=== PATIENT | male | born 1995 | race Caucasian/White ===

== ENCOUNTER 2017-11-18 17:03 | Emergency (ER) | payer BC, SELFPAY ==
[2017-11-18 17:19] VITALS: BP 145/110; PULSE 96; RESP 20; TEMP 37.1; O2SAT 98; BMI 26.4
--- NOTE | 2017-11-18 17:23 | HMH.EDUTC ---
[facility] [place] Disposition Clinical Impression: Bronchitis Disposition: Home, Self-Care Condition on Discharge: Good Instructions: DI for Acute Bronchitis Referrals: Santana Hernandez MD [Primary Care Provider] - Forms: Work/School Release Time of Disposition: 17:28 Medical Decision Making - Medical Records Medical records reviewed: Yes: I reviewed the patient's medical records. Vital Signs: 11/18/17 17:19 Temperature 98.8 F Temperature Source Temporal Artery Scan Pulse Rate [Brachial] 96 H Respiratory Rate 20 Blood Pressure [Right Arm] 145/110 Blood Pressure Mean [Right Arm] 121 Blood Pressure Source [Right Arm] Automatic Cuff Blood Pressure Position [Right Arm] Sitting 02 Sat by Pulse Oximetry 98 Oxygen Delivery Method Room Air - José Miguel Inquiry Pt receiving controlled substance: No [facility] [place] HPI - General Stated complaint: Cough Time Seen by Provider: 11/18/17 17:23 Mode of Arrival: Ambulatory Source of Information: Patient Limitations: No Limitations Description of Symptoms (Recalled from Triage Doc. by RN): WORK NOTE HEENT Symptoms (Recalled from RN notes): No Resp Symptoms (Recalled from RN notes): No Skin Symptoms (Recalled from RN notes): No MS Symptoms (Recalled from RN notes): No Functional Status (Recalled from RN notes): NA - History of Present Illness Provider Complaint: Sent home from work with cough. Seen 11/16/17 at [facility], diagnosed with bronchitis. Feels ok, just still has cough. Work sent him home. Onset (ago): day(s) (5) Location: chest Associated symptoms: denies other symptoms Treatments prior to arrival: none - Related Data Home Medications Medication Instructions Recorded Confirmed No Known Home Medications [No 11/16/17 11/16/17 Known Home Medications] Previous Rx's Medication Instructions Recorded albuterol sulfate HFA 90 2 puff INHALATION Q6H PRN 7 Days 11/16/17 mcg/actuation aerosol inhaler #6.7 g Allergies Allergy/AdvReac Type Severity Reaction Status Date / Time No Known Allergies Allergy Verified 11/16/17 15:52 - Worker's Comp Is this a Worker's Comp case?: No [facility] History I have reviewed the patient's past medical history: Yes Other Surgeries: Yes: No Previous Surgery - *Social History Smoking Status: Current every day smoker Tobacco Type: cigarettes Alcohol Intake: never - Psychiatric History Expresses thoughts of harming self/others: None Suicide Plan Description: No Plan *Family Hx:: Diabetes ROS Obtained: Yes All systems reviewed & no additional complaints - Respiratory Respiratory: Yes cough Physical Exam - General General appearance: alert, in no apparent distress - Head Head exam: atraumatic, normocephalic, normal inspection - Eye Eye exam: Present: normal appearance, PERRL, EOMI - ENT ENT exam: Present: normal exam, normal oropharynx, mucous membranes moist, TM's normal bilaterally, normal external ear exam - Neck Neck exam: Present: normal inspection, full ROM, trachea midline. Absent: meningismus, lymphadenopathy - Chest Chest inspection: Present: normal inspection, symmetric chest wall rise. Absent: tenderness - Respiratory Respiratory exam: Present: normal lung sounds bilaterally. Absent: respiratory distress - Cardiovascular Cardiovascular exam: Present: regular rate, normal rhythm. Absent: JVD - Abdominal Exam Abdominal exam: Present: soft, normal bowel sounds. Absent: distention, tenderness, guarding - Extremities Exam Extremities exam: Present: normal inspection, full ROM, normal capillary refill. Absent: calf tenderness - Back Exam Back exam: Present: normal inspection. Absent: tenderness - Neurological Exam Neurological exam: Present: alert, oriented X3 - Psychiatric Psychiatric exam: Present: normal affect, normal mood - Skin Skin exam: Present: warm, dry, intact, normal color - Lymphatic Lymphatic Findings: no adenopathy
--- NOTE | 2017-11-18 17:26 | ED_ITS ---
[facility] – [place] Disposition Clinical Impression: Bronchitis Disposition: Home, Self-Care Condition on Discharge: Good Instructions: DI for Acute Bronchitis Referrals: Santana Hernandez MD [Primary Care Provider] - Forms: Work/School Release Time of Disposition: 17:28 Medical Decision Making - Medical Records Medical records reviewed: Yes: I reviewed the patient's medical records. Vital Signs: 11/18/17 17:19 Temperature 98.8 F Temperature Source Temporal Artery Scan Pulse Rate [Brachial] 96 H Respiratory Rate 20 Blood Pressure [Right Arm] 145/110 Blood Pressure Mean [Right Arm] 121 Blood Pressure Source [Right Arm] Automatic Cuff Blood Pressure Position [Right Arm] Sitting 02 Sat by Pulse Oximetry 98 Oxygen Delivery Method Room Air - José Miguel Inquiry Pt receiving controlled substance: No [facility] [place] HPI - General Stated complaint: Cough Time Seen by Provider: 11/18/17 17:23 Mode of Arrival: Ambulatory Source of Information: Patient Limitations: No Limitations Description of Symptoms (Recalled from Triage Doc. by RN): WORK NOTE HEENT Symptoms (Recalled from RN notes): No Resp Symptoms (Recalled from RN notes): No Skin Symptoms (Recalled from RN notes): No MS Symptoms (Recalled from RN notes): No Functional Status (Recalled from RN notes): NA - History of Present Illness Provider Complaint: Sent home from work with cough. Seen 11/16/17 at [facility], diagnosed with bronchitis. Feels ok, just still has cough. Work sent him home. Onset (ago): day(s) (5) Location: chest Associated symptoms: denies other symptoms Treatments prior to arrival: none - Related Data Home Medications Medication Instructions Recorded Confirmed No Known Home Medications [No 11/16/17 11/16/17 Known Home Medications] Previous Rx's Medication Instructions Recorded albuterol sulfate HFA 90 2 puff INHALATION Q6H PRN 7 Days 11/16/17 mcg/actuation aerosol inhaler #6.7 g Allergies Allergy/AdvReac Type Severity Reaction Status Date / Time No Known Allergies Allergy Verified 11/16/17 15:52 - Worker's Comp Is this a Worker's Comp case?: No [facility] History I have reviewed the patient's past medical history: Yes Other Surgeries: Yes: No Previous Surgery - *Social History Smoking Status: Current every day smoker Tobacco Type: cigarettes Alcohol Intake: never - Psychiatric History Expresses thoughts of harming self/others: None Suicide Plan Description: No Plan *Family Hx:: Diabetes ROS Obtained: Yes All systems reviewed & no additional complaints - Respiratory Respiratory: Yes cough Physical Exam - General General appearance: alert, in no apparent distress - Head Head exam: atraumatic, normocephalic, normal inspection - Eye Eye exam: Present: normal appearance, PERRL, EOMI - ENT ENT exam: Present: normal exam, normal oropharynx, mucous membranes moist, TM's normal bilaterally, normal external ear exam - Neck Neck exam: Present: normal inspection, full ROM, trachea midline. Absent: meningismus, lymphadenopathy - Chest Chest inspection: Present: normal inspection, symmetric chest wall rise. Absent : tenderness - Respiratory Respiratory exam: Present: normal lung sounds bilaterally. Absent: respiratory distress
== END 2017-11-18 17:33 | disposition home or self-care (01) ==
PROVIDERS: Emergency Provider Physician Assistant; PCP Internal Medicine Adolescent Medicine
DX: J20.9 Acute bronchitis, unspecified (principal); F17.210 Nicotine dependence, cigarettes, uncomplicated
CPT/HCPCS: 99202

== ENCOUNTER 2020-09-19 11:20 | Emergency (ER) | payer SELFPAY ==
[2020-09-19 12:45] VITALS: BP 141/86; PULSE 89; RESP 19; TEMP 37.1; O2SAT 98; BMI 25.1
--- NOTE | 2020-09-19 12:47 | HMH.EDUTC ---
[facility] [place] Disposition Clinical Impression: Exposure to COVID-19 virus, Bronchitis Disposition: Home, Self-Care Condition on Discharge: Good Instructions: Preventing the Spread of Coronavirus Discharge Instructions Additional Instructions: Drink plenty of fluids. Take tylenol for pain or fever. Return if you begin to have difficulty breathing. Follow up with your regular doctor. GO TO THE ER FOR ANY WORSENING SYMPTOMS Prescriptions: Ondansetron [Zofran 4mg ODT] 4 mg PO Q8HP PRN #12 tab.rapdis PRN Reason: Nausea Transmission Status: Received by [email or web address] Azithromycin [Z-Eliot 250mg Tab*] 250 mg PO UD DOSE PK #6 tab Transmission Status: Received by [email or web address] Referrals: PCP,No [Primary Care Provider] - Time of Disposition: 13:02 Medical Decision Making - Medical Records Medical records reviewed: No: I reviewed the patient's medical records. - José Miguel Inquiry Pt receiving controlled substance: No Vital Signs: 09/19/20 12:45 09/19/20 13:14 Temperature 98.7 F 98.7 F Temperature Source Oral Pulse Rate 89 Pulse Rate [Right Brachial] 89 Respiratory Rate 19 19 Blood Pressure 141/86 H Blood Pressure [Right Arm] 141/86 H Blood Pressure Mean [Right Arm] 104 Blood Pressure Source [Right Arm] Automatic Cuff Blood Pressure Position [Right Arm] Sitting 02 Sat by Pulse Oximetry 98 Oxygen Delivery Method Room Air Orders (Tests/Meds): ORDERS Category Date Time Status Covid-19 Nasal PCR ([facility]) Routine Lab 09/19/20 12:38 Ordered Covid-19 Nasal PCR ([facility]) Routine Lab 09/19/20 12:46 Received [facility] [place] HPI - General Stated complaint: Cough, sore throat Time Seen by Provider: 09/19/20 12:47 - History of Present Illness Provider Complaint: He states that for the past 3 days he has had a cough, body aches, and feeling bad. He denies any known exposure to covid. 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 - Related Data Previous Rx's Medication Instructions Recorded Azithromycin [Z-Eliot 250mg Tab*] 250 mg PO UD DOSE PK #6 tab 09/19/20 Ondansetron [Zofran 4mg ODT] 4 mg PO Q8HP PRN #12 tab.rapdis 09/19/20 Allergies Allergy/AdvReac Type Severity Reaction Status Date / Time No Known Allergies Allergy Verified 11/16/17 15:52 [facility] History - Hepatitis A Screen Attestation statement:: This patient has been screened for Hepatitis A risk factors. I have reviewed the patient's past medical history: Yes Other Surgeries: Yes: No Previous Surgery - Social History Smoking Status: Current every day smoker Tobacco Type: cigarettes Alcohol Intake: never Family Hx:: Diabetes ROS Obtained: Yes All systems reviewed & no additional complaints - Constitutional Constitutional: Reports chills, Reports fever(s), Reports poor appetite, Reports malaise - Eyes Eyes: Denies eye discharge - ENT Ears, Nose, Mouth, and Throat: Reports as per HPI - Cardiovascular Cardiovascular: Denies chest pain - Respiratory Respiratory: Yes chest congestion, Yes cough, No dyspnea, No stridor, No wheezing - Gastrointestinal Gastrointestingal: Reports: nausea. Denies: abdominal pain, diarrhea, vomiting Physical Exam - General General appearance: alert, in no apparent distress - Head Head exam: atraumatic, normocephalic, normal inspection - Eye Eye exam: Present: normal appearance, PERRL, EOMI - ENT ENT exam: Present: normal exam, normal oropharynx, mucous membranes moist, TM's normal bilaterally, normal external ear exam - Neck Neck exam: Present: normal inspection, full ROM, trachea midline. Absent: meningismus, lymphadenopathy - Chest Chest inspection: Present: normal inspection, symmetric chest wall rise. Absent: tenderness - Respiratory Respiratory exam: Present: normal lung sounds bilaterally. Absent: respiratory distress - Cardiovascular Cardiovascular exam: Present: regular rate, normal rhythm. Absent: JVD - Abdomi
[2020-09-19 13:14] VITALS: BP 141/86; PULSE 89; RESP 19; TEMP 37.1; O2SAT 98
== END 2020-09-19 13:16 | disposition home or self-care (01) ==
PROVIDERS: Emergency Provider Nurse Practitioner Family
DX: Z20.828 Contact with and (suspected) exposure to other viral communicable diseases (principal); J20.9 Acute bronchitis, unspecified; F17.210 Nicotine dependence, cigarettes, uncomplicated
CPT/HCPCS: 99201; U0003

== ENCOUNTER 2021-06-24 15:57 | Emergency (ER) | payer SELFPAY ==
[2021-06-24 17:44] VITALS: BP 114/62; PULSE 66; RESP 18; TEMP 36.7; O2SAT 99; BMI 25.2
--- NOTE | 2021-06-24 17:50 | HMH.EDUTC ---
[facility] [place]ression: Exposure to COVID-19 virus Disposition: Home, Self-Care Condition on Discharge: Good Instructions: DI for COVID-19 (Suspected or Confirmed ), Coronavirus Disease 2019, Preventing the Spread of Coronavirus Discharge Instructions Additional Instructions: *Monitor Temp, Over the counter Motrin or Tylenol as directed/as needed Tylenol every 4 hours and Motrin every 6 hours (as long as your family doctor has told you that you can take it) for fever or pain. and straight to ER if unable to lower temp less than 101.0 after medication given *Warm salt water gargles may help to soothe the throat *Throat Lozenges *Warm fluids like tea with honey may help to soothe the throat *Sleep elevated *Humidifier/Vaporizer Follow up IMMEDIATELY for new or worsening symptoms or no Noticeable improvement over the next 48-72 hours. 911 for difficulty breathing or swallowing You were tested for today for COVID19 your test result should be back in the next 24-48 hours, you may call to the [facility] to see if your test results are back in the next 48 hours [phone] [facility] hours are 9am-9pm You was given a handout with instructions for Self Quarantine and Self isolation for while you wait on test results and what to do if they are positive If you are positive the Health Dept will be contacting you also Make sure to take your Vitamins Vit. C Vit D and Zinc if you can take them Prescriptions: Fluticasone Propionate [Flonase 50mcg nasal spray 16gm] 1 spr NS DAILY #1 ml Transmission Status: Pending to [facility] Referrals: Provider,Referral, [Primary Care Provider] - As needed Forms: Work/School Release Time of Disposition: 17:56 Medical Decision Making - José Miguel Inquiry Pt receiving controlled substance: No José Miguel was queried for this patient: No Vital Signs: 06/24/21 17:44 Temperature 98.0 F Temperature Source Oral Pulse Rate [Left Radial] 66 Respiratory Rate 18 Blood Pressure [Left Arm] 114/62 Blood Pressure Mean [Left Arm] 79 Blood Pressure Source [Left Arm] Automatic Cuff Blood Pressure Position [Left Arm] Sitting 02 Sat by Pulse Oximetry 99 Oxygen Delivery Method Room Air Orders (Tests/Meds): ORDERS Category Date Time Status Covid-19 Nasal PCR ([facility]) Routine Lab 06/24/21 17:39 Or[place] [facility] [place] - General Stated complaint: covid test Time Seen by Provider: 06/24/21 17:50 Mode of Arrival: Ambulatory Source of Information: Patient Limitations: No Limitations Description of Symptoms (Recalled from Triage Doc. by RN): requesting covid test, states girl friend tested positive yesterday. Pt reports body aches HEENT Symptoms (Recalled from RN notes): No Resp Symptoms (Recalled from RN notes): No Skin Symptoms (Recalled from RN notes): No MS Symptoms (Recalled from RN notes): No Functional Status (Recalled from RN notes): n/a - History of Present Illness Provider Complaint: Patient states that his girlfriend tested positive for COVID states that he has been having some body aches and runny nose so he wanted to get tested to make sure that he doesnt have it where he has been around her - Related Data Previous Rx's Medication Instructions Recorded Azithromycin [Z-Eliot 250mg Tab*] 250 mg PO UD DOSE PK #6 tab 09/19/20 Ondansetron [Zofran 4mg ODT] 4 mg PO Q8HP PRN #12 tab.rapdis 09/19/20 Fluticasone Propionate [Flonase 1 spr NS DAILY #1 ml 06/24/21 50mcg nasal spray 16gm] Allergies Allergy/AdvReac Type Severity Reaction Status Date / Time No Known Allergies Allergy Verified 12/26/20 13:04 - Worker's Comp Is this a Worker's Comp case?: No [facility] History - Hepatitis A Screen Drug use history?: No High risk sexual behaviors?: No History of sexually transmitted infection?: No Currently employed?: No Childcare worker?: No Do you have indoor plumbing?: Yes Do you have electricity?: Yes Attestation statement:: This patient has been screened for Hepatitis A ri
[2021-06-24 17:59] VITALS: BP 0/0; PULSE 0; RESP 0; TEMP -17.7; TEMP 0
--- NOTE | 2021-06-25 15:46 | PC.NURSE ---
Patient aware of negative COVID result
== END 2021-06-24 18:09 | disposition home or self-care (01) ==
PROVIDERS: Emergency Provider Nurse Practitioner
DX: Z20.822 Contact with and (suspected) exposure to COVID-19 (principal); F17.210 Nicotine dependence, cigarettes, uncomplicated
CPT/HCPCS: 99202; G0463; U0003

== ENCOUNTER → 2022-06-26 09:11 | Outpatient (CLI) | payer OTHER, SELFPAY | PROVIDERS: PCP Internal Medicine; Visit Provider Physician Assistant | DX: U07.1 COVID-19 (principal); J02.9 Acute pharyngitis, unspecified | CPT/HCPCS: 87070; C9803; U0003; U0005 ==

== ENCOUNTER → 2023-09-09 16:42 | Outpatient (CLI) | payer OTHER, SELFPAY ==
[2023-09-09 16:26] LABS: Basophils # 0.1 K/mm3 (0-0.2); Basophils % 0.7 % (0.1-2.0); Eosinophils # 0.5 K/mm3 (0.0-0.4); Eosinophils % 6.6 % (0.1-12.0); Hematocrit 46.4 % (42.0-52.0); Hemoglobin 16.3 g/dL (14.1-18.0); Lymphocytes # 2.6 K/mm3 (0.7-4.5); Lymphocytes % 35.4 % (10-50); Mean Corpuscular Volume 88.5 fl (80-94); Mean Platelet Volume 8.6 fl (7.4-10.4); Monocytes # 0.5 K/mm3 (0.1-1.0); Monocytes % 6.9 % (1.7-9.3); Neutrophils # 3.7 K/mm3 (1.8-7.8); Neutrophils % 50.5 % (37.0-80.0); Platelet Count 244 K/mm3 (142-424); Red Blood Count 5.25 M/mm3 (4.60-6.20); Red Cell Distribution Width 12.5 % (11.5-17.5); White Blood Count 7.3 K/mm3 (4.8-10.8)
[2023-09-09 17:18] LABS: Alanine Aminotransferase 57 U/L (12-78); Albumin Level 4.9 g/dl (3.5-5.0); Albumin/Globulin Ratio 2.1 (1.1-1.8); Alkaline Phosphatase 63 U/L (38-126); Anion Gap 17.5 mEq/L (5-15); Aspartate Amino Transferase 63 U/L (17-59); Bilirubin,Total 0.6 mg/dl (0.2-1.3); Blood Urea Nitrogen 23 mg/dl (9-20); Calcium 9.5 mg/dl (8.4-10.2); Carbon Dioxide 27 mmol/L (22.0-30.0); Chloride 99 mmol/L (98-107); Chol/HDL Ratio 5.9 (1-3.5); Cholesterol 165 mg/dl (140-200); Estimated Glomerular Filt Rate 79 ml/min (>60); GFR (African American) 96 ML/MIN (>60); Globulin 2.3 g/dL (1.3-3.2); Glucose 88 mg/dl (74-100); HDL Cholesterol 28 mg/dl (40-60); Potassium 4.5 mmoL/L (3.5-5.1); Sodium 139 mmol/L (136-145); Total Protein,Serum 7.2 g/dl (6.3-8.2); Triglycerides 317 mg/dl (30-150); VLDL Cholesterol 63 mg/dL (0-40)
[2023-09-09 17:48] LABS: Thyroid Stimulating Hormone 1.46 uIU/mL (0.465-4.68)
== END ==
LOC: LAB.DROPOF 16:42
PROVIDERS: PCP Nurse Practitioner Family; Visit Provider Nurse Practitioner Family
DX: I10 Essential (primary) hypertension (principal)
CPT/HCPCS: 80053; 80061; 84443; 85025

== ENCOUNTER → 2023-09-10 14:15 | Outpatient (CLI) | payer OTHER, SELFPAY ==
--- NOTE | 2023-09-10 14:23 | XR_ITS ---
PROCEDURE INFORMATION: Exam: XR Chest Exam date and time: 09/10/2023 2:24 PM Age: 28 years old Clinical indication: Other: HTN; Additional info: Hypertension TECHNIQUE: Imaging protocol: Radiologic exam of the chest. Views: 2 views. Total images: 2 COMPARISON: No relevant prior studies available. FINDINGS: Lungs: Unremarkable. No consolidation. Pleural spaces: Unremarkable. No pleural effusion. No pneumothorax. Heart/Mediastinum: Unremarkable. No cardiomegaly. Bones/joints: Unremarkable. IMPRESSION: No acute findings.
== END ==
PROVIDERS: PCP Nurse Practitioner Family; Visit Provider Nurse Practitioner Family
DX: I10 Essential (primary) hypertension (principal)
CPT/HCPCS: 71046

== ENCOUNTER → 2023-09-21 08:41 | Outpatient (CLI) | payer OTHER, SELFPAY ==
--- NOTE | 2023-09-21 08:47 | CA_ITS ---
APPROVED REPORT EXAM: Comprehensive 2D, Doppler, and color-flow Echocardiogram Physical Therapy Assistant Instructor: Veronique Fernandes CRT Ht: 5 ft 10 in Wt: 197lbs BSA: 2.07 BP: 128/88 mmHg Indications: Hypertension/HDD,dizziness,palpitations 2D Dimensions LVOT 2.00 cm (M/F) 1.5-2.5 LA Volume 29.90 mL LA Volume Index 14.10 mL/m2 (M/F) 16-34 M-Mode Dimensions RVDd 2.51 cm (0.9-2.6) LA Diam 2.86 cm (1.9-4.0) LVDd 5.63 cm (3.5-5.7) Ao Diam 3.68 cm (2.0-3.7) LVDs 4.02 cm (3.5-5.7) IVSd 1.18 cm (0.6-1.1) PWd 0.86 cm (0.6-1.1) EF (Teich) 54.50% FS 28.60% EDV (Teich) 155.60 mL TAPSE 1.70 (<1.7) ESV (Teich) 70.80 mL LV Diastology E Decel Time 263.00 (160-240 msec) E/A Ratio 0.89 MED E' 8.20 (< 7 cm/sec) MED A' 7.30 cm/s E'/MED E' Ratio 7.05 (>14) LAT E' 11.80 (<10 cm/sec) LAT A' 7.60 cm/s E/LAT E' Ratio 4.90 (>14) Aortic Valve AO Peak GR. 4.40 mmHg Mitral Valve MV A Velocity 65.00 (40-130 cm/s) E/A Ratio 0.89 MV Decel. Time 263.00 (160-240 ms) Pulmonary Valve PV Peak Velocity 91.00 (50-150 cm/s) Tricuspid Valve TR P. Velocity 149.00 cm/s RAP Estimate 10.00 mmHg RVSP 18.90 mmHg Left Ventricle The left ventricle is normal size. The left ventricular systolic function is normal. The left ventricular ejection fraction is within the normal range. There is normal left ventricular wall thickness. There is normal LV segmental wall motion. The left ventricular diastolic function is normal. LVEF is 55%. Right Ventricle The right ventricle is normal size. The right ventricular systolic function is normal. Atria The left atrium size is normal. The right atrium size is normal. The interatrial septum is not well-visualized. Aortic Valve The aortic valve opens well. There is no aortic valvular stenosis. No aortic regurgitation is present. Mitral Valve The mitral valve is normal in structure. No evidence of mitral valve stenosis. Trace mitral regurgitation. Tricuspid Valve The tricuspid valve leaflets are thin and pliable. Trace tricuspid regurgitation. There is insufficient TR jet to estimate RVSP. Pulmonic Valve The pulmonary valve is normal in structure. Trace pulmonic regurgitation. Great Vessels The aortic root is normal in size. The ascending aorta is normal in size. IVC is normal in size and collapses >50% with inspiration. Pericardium There is no pericardial effusion. Other Information Study Quality: Fair Conclusion Normal biventricular systolic function. No significant valvular stenosis or regurgitation. Electronically signed by : Ansley Kinsey MD 09/25/2023 21:16:18
--- NOTE | 2023-09-21 10:40 | CA_ITS ---
APPROVED REPORT Exam: Exercise Treadmill Technologist: Zuleyka Bales, Ht: 5 ft 10 in Wt: 197 lbs BSA: 2.07 m2 HR: 77 bpm BP: 126/96 mmHg Rhythm: NSR Medical History Medications: BisOPROLOL Fumarate,,,,, Stress Test Details Test: Terry HR Resting HR: 79 bpm Max Heart Rate (APMHR): 191 bpm Max HR Achieved: 175 bpm Target HR (85% APMHR): 162 bpm % of APMHR: 92 Recovery HR: 102 bpm HR response to stress: Normal HR response to stress BP Resting BP: 130.0/94.0 mmHg Max BP: 204.0/106.0 mmHg Recovery BP: 150.0/94.0 mmHg BP response to stress: Abnormal hypertensive response to stress. ECG Resting ECG: NSR, rightward axis Stress EC.[address] depression Arrhythmia: PACs Recovery ECG: Return to baseline within 3 minutes of recovery Recovery Arrhythmia: PACs Clinical Exercise duration: 14:37 min Highest Stage Achieved: V Exercise capacity: 14.8 METs Overall Exercise Capacity for Age: Good Stress ECG Conclusion The patient was able to exercise for a total of 40 minutes, 37 seconds. He achieved a total of 14.8 METS. He has good exercise capacity compared to age and sex matched peers. He has normal HR, but exaggerated BP, response to exercise. Max HR: 173 % of PM: 91% Max BP: 204/106 Test stopped due to: SOA, leg fatigue. Symptoms: No chest pain. Arrhythmias/Ectopy: PVCs ST-T Changes: Normal ST response to exercise. Nonspecific T wave cchanges in late recovery. Conclusion: Good exercise capacity. Exaggerated BP response to exercise at peak stress. Normal GXT. GXT only ( no imaging) Test Summary REST . . . . . . . Sitting REST . . . . . . . Sitting REST . . . . . . . Standing REST 02:44 0.0 0.0 79 . 130/ 94 . . Stage 1 01:00 10.0 1.7 96 . . . . Stage 1 02:00 10.0 1.7 94 . . . . Stage 1 03:00 10.0 1.7 95 . 152/ 86 . . Stage 2 01:00 12.0 2.5 107 . . . . Stage 2 02:00 12.0 2.5 109 . . . . Stage 2 03:00 12.0 2.5 104 . 166/ 80 . . Stage 3 01:00 14.0 3.4 120 . . . . Stage 3 02:00 14.0 3.4 122 . . . . Stage 3 03:00 14.0 3.4 126 . 175/ 72 . . Stage 4 01:00 16.0 4.2 140 . . . . Stage 4 02:00 16.0 4.2 147 . . . . Stage 4 03:00 16.0 4.2 146 . 196/ 80 . . Stage 5 01:00 18.0 5.0 168 . . . . Stage 5 02:00 18.0 5.0 172 . . . . Stage 5 02:37 18.0 5.0 173 . . . Stop exercise at 14:37 RECOVERY 01:00 0.0 0.0 154 . . . . RECOVERY 02:00 0.0 0.0 122 . . . . RECOVERY 03:00 0.0 0.0 108 . 204/106 . . RECOVERY 04:00 0.0 0.0 112 . 178/106 . . RECOVERY 05:00 0.0 0.0 103 . 178/106 . . RECOVERY 06:00 0.0 0.0 100 . 181/ 95 . . RECOVERY 07:00 0.0 0.0 102 . 150/ 94 . . RECOVERY 07:19 0.0 0.0 103 . 150/ 94 . . Electronically signed by : Ansley Kinsey MD 10/18/2023 12:35:06
== END ==
LOC: RT 08:41
PROVIDERS: PCP Nurse Practitioner Family; Visit Provider Nurse Practitioner Family
DX: I10 Essential (primary) hypertension (principal); Z87.891 Personal history of nicotine dependence
CPT/HCPCS: 93017; 93018; 93306

== ENCOUNTER 2023-11-10 13:32 | Outpatient (CLI) | payer OTHER, SELFPAY ==
--- NOTE | 2023-11-10 13:39 | XR_ITS ---
FINAL REPORT CLINICAL HISTORY: right medial/lateral pain in elbow. Pain runs down into forearm. COMPARISON: None FINDINGS: AP, oblique, and lateral views of the right elbow were obtained. There is no prior exam for comparison. There is no acute fracture or dislocation. Joint space is preserved. There is no joint effusion or other soft tissue abnormality. IMPRESSION: No acute osseous abnormality of the right elbow. Reviewed, Interpreted and Dictated by Nicholas Ribera III, MD Transcribed by Beverley Vincent Authenticated and . [facility]
== END 2023-11-10 23:59 ==
LOC: RAD 13:33
PROVIDERS: PCP Nurse Practitioner Family; Visit Provider Orthopaedic Surgery
DX: M25.521 Pain in right elbow (principal)
CPT/HCPCS: 73080

== ENCOUNTER 2024-04-10 12:49 | Outpatient (CLI) | payer OTHER, SELFPAY ==
--- NOTE | 2024-04-10 12:50 | CA_ITS ---
APPROVED REPORT EXAM: Comprehensive 2D, Doppler, and color-flow Echocardiogram Harness Placer: Veronique Fernandes CRT Ht: 5 ft 10 in Wt: 200lbs BSA: 2.09 BP: 110/66 mmHg Indications: Hypertension/HDD, Exsmoker 2D Dimensions Left Atrium 3.01 cm LVEF (Beckett's) 51.90 % LVOT 2.00 cm (M/F) 1.5-2.5 LV Volume 125.50 mL LA Volume 43.20 mL LA Volume Index 20.70 mL/m2 (M/F) 16-34 EF AP4 52.00 % EF AP2 51.2 % EF BP 51.9 % GL Strain -18.8 % M-Mode Dimensions RVDd 2.18 cm (0.9-2.6) LVDd 5.55 cm (3.5-5.7) Ao Diam 3.77 cm (2.0-3.7) LVDs 3.59 cm (3.5-5.7) IVSd 1.03 cm (0.6-1.1) PWd 0.77 cm (0.6-1.1) EF (Teich) 64.10% FS 35.30% EDV (Teich) 150.50 mL TAPSE 2.06 (<1.7) ESV (Teich) 54.10 mL LV Diastology E Decel Time 167 (160-240 msec) E/A Ratio 1.33 MED E' 7.8 (>= 7 cm/sec) MED A' 8.90 cm/s E'/MED E' Ratio 10.51 (<= 14) LAT E' 15.3 (>= 10 cm/sec) LAT A' 9.50 cm/s E/LAT E' Ratio 5.36 (<= 14) Aortic Valve AoV Peak Nii. 123.0 (50-130 cm/s) AO Peak GR. 6.00 mmHg Mitral Valve MV E Max Nii. 82.0 (40-130 cm/s) MV A Velocity 62.0 (40-130 cm/s) E/A Ratio 1.33 MV Decel. Time 167 (160-240 ms) Tricuspid Valve TR P. Velocity 241.00 cm/s RAP Estimate 10.00 mmHg RVSP 33.20 mmHg Left Ventricle The left ventricle is normal size. The left ventricular systolic function is normal. The left ventricular ejection fraction is within the normal range. There is normal left ventricular wall thickness. There is normal LV segmental wall motion. The left ventricular diastolic function is normal. LVEF is 55%. Right Ventricle The right ventricle is normal size. The right ventricular systolic function is normal. Atria The left atrium size is normal. The right atrium size is normal. Aortic Valve The aortic valve is normal in structure. There is no aortic valvular stenosis. Color Doppler across the interatrial septum is not performed in this study. Mitral Valve The mitral valve is normal in structure. No evidence of mitral valve stenosis. There is no mitral valve regurgitation noted. Tricuspid Valve The tricuspid valve leaflets are thin and pliable. There is no tricuspid valve stenosis. Trace tricuspid regurgitation. There is insufficient TR jet to estimate RVSP. Pulmonic Valve The pulmonary valve is normal in structure. Trace pulmonic regurgitation. Great Vessels The aortic root is normal in size. The ascending aorta is normal in size. IVC is normal in size and collapses >50% with inspiration. Pericardium There is no pericardial effusion. Other Information Study Quality: Adequate Conclusion Normal biventricular systolic function. No significant valvular stenosis or regurgitation. Electronically signed by : Ansley Kinsey MD 04/15/2024 17:06:05
== END 2024-04-10 23:59 | disposition home or self-care (01) ==
PROVIDERS: PCP Nurse Practitioner Family; Visit Provider Nurse Practitioner Family
DX: I10 Essential (primary) hypertension (principal); F17.210 Nicotine dependence, cigarettes, uncomplicated
CPT/HCPCS: 93306

== ENCOUNTER 2024-07-19 08:08 | Outpatient (CLI) | payer OTHER, SELFPAY ==
--- NOTE | 2024-07-19 08:09 | MR_ITS ---
FINAL REPORT CLINICAL HISTORY: Right Elbow almeida and swelling in the joint nki COMPARISON: None FINDINGS: Multiplanar MR imaging of the right elbow was performed without contrast. The bony structures are intact without evidence of fracture, bone bruise or marrow edema. There is no evidence of osteochondral lesion. The ligaments appear intact. The common extensor tendon is intact. The common flexor tendon is intact. The biceps tendon is intact. The distal triceps tendon is intact. The brachialis tendon is intact. The musculature has an unremarkable appearance. No soft tissue mass or cyst is identified. No focal abnormality is identified of the ulnar nerve. IMPRESSION: No focal injury identified. Reviewed, Interpreted and Dictated by Srikanth De La Cruz MD Transcribed by Beverley Vincent Authenticated and [facility][1]
== END 2024-07-19 23:59 | disposition home or self-care (01) ==
LOC: RAD 08:09
PROVIDERS: PCP Nurse Practitioner Family; Visit Provider Orthopaedic Surgery
DX: M25.521 Pain in right elbow (principal); S56.911D Strain of unspecified muscles, fascia and tendons at forearm level, right arm, subsequent encounter
CPT/HCPCS: 73221

== ENCOUNTER 2025-04-01 08:35 | Outpatient (CLI) | payer OTHER, SELFPAY ==
--- NOTE | 2025-04-01 08:39 | CA_ITS ---
APPROVED REPORT EXAM: Comprehensive 2D, Doppler, and color-flow Echocardiogram Cap Maker: Alicja Hallman RVT Ht: 5 ft 10 in Wt: 200lbs BSA: 2.09 BP: 156/100 mmHg Indications: HTN,VALVULAR REGURGITATION 2D Dimensions LA Volume 42.20 mL LA Volume Index 20.19 mL/m2 (M/F) 16-34 M-Mode Dimensions RVDd 2.32 cm (0.9-2.6) LA Diam 3.17 cm (1.9-4.0) LVDd 5.13 cm (3.5-5.7) LVDs 3.31 cm (3.5-5.7) IVSd 1.06 cm (0.6-1.1) PWd 0.72 cm (0.6-1.1) EF (Teich) 64.50% FS 35.50% EDV (Teich) 125.50 mL TAPSE 2.04 (<1.7) ESV (Teich) 44.50 mL LV Diastology E Decel Time 150 (160-240 msec) E/A Ratio 1.0 Aortic Valve DELFINO Index 1.43 cm2/m2 AoV Peak Nii. 117.0 (50-130 cm/s) AO Peak GR. 5.50 mmHg AO Mean GR. 3.30 (<5 mmHg) AO VTI 23.5 (18-25 cm) DELFINO (VTI) 3.05 (2.5-4.5 cm2) Mitral Valve MV E Max Nii. 76.0 (40-130 cm/s) MV A Velocity 76.0 (40-130 cm/s) E/A Ratio 1.00 MV PHT 44.0 ms Pulmonary Valve PV Peak Velocity 80.0 (50-150 cm/s) Left Ventricle The left ventricle is normal size. The left ventricular systolic function is normal. The left ventricular ejection fraction is within the normal range. There is normal left ventricular wall thickness. There is normal LV segmental wall motion. The left ventricular diastolic function is normal. LVEF is 55%. Right Ventricle The right ventricle is normal size. The right ventricular systolic function is normal. Atria The left atrium size is normal. The right atrium size is normal. There is no color Doppler evidence of interatrial shunt. Aortic Valve The aortic valve opens well. There is no aortic valvular stenosis. No aortic regurgitation is present. Mitral Valve The mitral valve is normal in structure. No evidence of mitral valve stenosis. There is no mitral valve regurgitation noted. Tricuspid Valve Tricuspid valve is grossly normal in structure and function. Trace tricuspid regurgitation. There is insufficient TR jet to estimate RVSP. Pulmonic Valve The pulmonary valve is normal in structure. Trace pulmonic regurgitation. Great Vessels The aortic root is normal in size. IVC is normal in size and collapses >50% with inspiration. Pericardium There is no pericardial effusion. Other Information Study Quality: Fair Conclusion Normal biventricular systolic function. No significant valvular stenosis or regurgitation. Electronically signed by : Ansley Kinsey MD 04/08/2025 23:49:47
== END 2025-04-01 23:59 | disposition home or self-care (01) ==
LOC: RT 08:36
PROVIDERS: PCP Nurse Practitioner Family; Visit Provider Nurse Practitioner Family
DX: I34.0 Nonrheumatic mitral (valve) insufficiency (principal); I10 Essential (primary) hypertension
CPT/HCPCS: 93306

== ENCOUNTER 2025-07-04 15:03 | Outpatient (CLI) | payer OTHER, SELFPAY ==
--- NOTE | 2025-07-04 15:00 | CT_ITS ---
FINAL REPORT TECHNIQUE: Axial CT images were performed through the head. Coronal reformatted images were submitted. This study was performed with techniques to keep radiation doses as low as reasonably achievable (ALARA). Individualized dose reduction techniques using automated exposure control or adjustment of mA and/or kV according to the patient's size were employed. CLINICAL HISTORY: headaches FINDINGS: The ventricles are normal in size. There is no evidence of hemorrhage. There is no mass or edema identified. There is no abnormal extra-axial fluid seen. The left mastoid air cells are asymmetrically hypoplastic. There is mild mucoperiosteal thickening of the ethmoid sinuses. IMPRESSION: No acute intracranial process. Mild chronic ethmoid sinusitis. Reviewed, Interpreted and Dictated by Srikanth De La Cruz MD Transcribed by Paty Montanez Authenticated and [facility]
--- OUTSIDE RECORDS SUMMARY | 2025-07-04 15:05 | XMS_ITS | Clinical Summary ---
[facility] [address] [place] [address] Care Team Providers Care Manager Account Management Name Role Phone Provider, No Known Primary Care Provider Unavail able Allergies No known active allergies Medications No known medications Active Problems No known active problems Social History Tobacco Use Types Packs/Day Years Used Date Smoking Tobacco: Every Day Abuse Screen Answer Date Recorded Unsafe at Home or Work/School Not on file Feels Threatened by Someone? Not on file 08/2023 Does Anyone Keep You from Co ntacting Others or Doint Things Outside the Home? Not on file 08/10/2023 Physical Sign of Abuse Present Not on file 1 Housing Stability Answer Date Recorded Current Living Arrangements Not on file 07/31 Potentially Unsafe Housing Conditions Not on brittani e 08/10/2023 Family and Community Support Answer Chris e Recorded Help with Day-to-Day Activities Not on file 08/10/2023 Lonely or Isolated Not on file 08/10/2023 Employment Answer Date Recorded Do you want help finding or keeping work or a amelie b? Not on file 08/10/2023 Disabilities Answer Date Recorded Concentrating, Remembering, or Making Decisions Difficulty Not on file 08/10/2023 Doing Errands Independently Difficulty Not on fi le 08/10/2023 Education Answer Date Recorded Help with school or training? Not on file Preferred Language Not on file 08/10/2023 Sex and Gender Information Value Date Recorded Sex Assigned at Not on file Legal Sex Male 1:22 PM EST Gender Identity Not on file Sexual Orientation Not on file Last Filed Vital Signs Vital Sign Reading Time Taken Comments Blood Pressure - - Pulse 89 11/14/2017 1:37 PM EST Temperature 36.8 C (98.2 F) 11/14/2017 1:37 PM EST Respiratory Rate 15 11/14/2017 1:37 PM EST Oxygen Saturation 98% 11/14/2017 1:37 PM EST Inhaled Oxygen Concentration - - Weight 81.3 kg (179 lb 3.2 oz) 11/14/2017 1:37 P M EST Height 175.3 cm (5' 9 ) 11/14/2017 1:37 PM EST Body Mass Index 26.46 11/14/2017 1:37 PM EST Plan of Treatment Health Maintenance Due Date Last Done Comments TDAP/TD VACCINES (1 - Tdap) 2013 ANNUAL PHYSICAL 11/14/2017 HEPATITIS C SCREENING 11/14/2017 COVID-19 Vaccine (2023-2 5 season) 2024 INFLUENZA VACCINE 07/31/2025 Pneumococcal Vaccine 0-49 Aged Out No longer eligible based on patient's age to complete this topic Insurance [facility] P[facility] Care Teams Manager Account Management Relationship Specialty Start Date End Date Provider, No Known [facility] [place] [address] PCP - General 11/14/17
== END 2025-07-04 23:59 | disposition home or self-care (01) ==
LOC: RAD 15:04
PROVIDERS: PCP Nurse Practitioner Family; Visit Provider Nurse Practitioner Family
DX: J32.2 Chronic ethmoidal sinusitis (principal); H53.009 Unspecified amblyopia, unspecified eye; I10 Essential (primary) hypertension; R51.9 Headache, unspecified
CPT/HCPCS: 70450